=== PATIENT | female | born 2000 ===

== ENCOUNTER 2024-03-22 05:59 | Inpatient (IN) | payer OTHER ==
[~2024-03-22] VITALS: Ht 165.1 cm; Wt 84.8 kg
[2024-03-22 05:37] VITALS: BP 117/77
[2024-03-22] MEDS ORDERED: AMPICILLIN SODIUM 2,000 MG VIAL IV STA (06:09)
[2024-03-22] MEDS ORDERED: PRENATAL CAPLE1 EAC1 PO (06:11)
[2024-03-22] MEDS ORDERED: OXYTOCIN 20 UNITS/500ML RL PIGGYBAG IV ONE (06:15)
[2024-03-22] MEDS ORDERED: RINGERS SOLUTION,LACTATED 1,000 ML IV SCH (06:15)
[2024-03-22 06:46] LABS: HEMATOCRIT 35.8 % (36.0-45.00); HEMOGLOBIN 12.5 g/dL (12.0-15.00); MEAN CELL VOLUME 89.5 fL (80.00-100.00); MEAN CORPUSCULAR HEMOGLOBIN 31.2 pg (27.00-32.0); MEAN CORPUSCULAR HGB CONC 34.9 g/dl (32.0-36.0); PLATELET COUNT 212 K/uL (150-450)
[2024-03-22 06:57] LABS: URINE APPEARANCE Clear; URINE BILIRRUBIN Negative (NEGATIVE); URINE BLOOD Moderate; URINE COLOR Yellow; URINE GLUCOSE Negative (NEGATIVE); URINE KETONE Negative (NEGATIVE); URINE LEUKOCYTE Moderate; URINE NITRATE Negative; URINE PROTEIN Negative (NEGATIVE)
[2024-03-22 06:58] LABS: URINE BACTERIA 764.8 uL (0.0-1933); URINE EPITHELIAL CELLS 75.3 uL (0.0-38.8); URINE RBC 3.6 uL (0.0-20.8); URINE WBC 127.9 uL (0.0-23.2)
[2024-03-22 07:11] LABS: INR 0.94; PARTIAL THROMBOPLASTIN TIME 25.9 SECONDS (22.0-34.0); PROTHROMBIN TIME 10.3 SECONDS (9.0-11.5)
[2024-03-22 07:43] LABS: ALBUMIN 2.8 gm/dL (3.4-5.0); BILIRUBIN TOTAL 0.34 mg/dL (0.3-1.2); CALCIUM 8.9 mg/dL (8.5-10.1); CREATININE SERUM 0.68 mg/dL (0.55-1.02); GFR 109.22; GLOBULINA 3.3 G/DL (2.4-3.5); TOTAL PROTEIN 6.1 gm/dL (6.4-8.2)
[2024-03-22 07:53] VITALS: BP 132/71
[2024-03-22] MEDS ORDERED: PROMETHAZINE HCL 25 MG/ML AMPUL IV ONE (09:00)
[2024-03-22] MEDS ORDERED: AMPICILLIN SODIUM 1,000 MG VIAL IV SCH (09:00)
[2024-03-22] MEDS ORDERED: MEPERIDINE HCL/PF 50 MG/ML VIAL IV ONE (09:00)
[2024-03-22] MEDS ORDERED: LIDOCAINE HCL 1% 10ML VIAL IJ ONE (13:30)
[2024-03-22] MEDS ORDERED: OxyCODONE HCL/APAP UD (PERCOCET) PO PRN (13:30)
[2024-03-22] MEDS ORDERED: ERYTHROMYCIN BASE OPHT 1GM EACH TUBE OP ONE (13:30)
[2024-03-22] MEDS ORDERED: ACETAMINOPHEN 325 MG TABLET PO PRN (13:30)
[2024-03-22] MEDS ORDERED: OXYTOCIN 20 UNITS/1000ML RL PIGGYBAG IV ONE (13:30)
[2024-03-22] MEDS ORDERED: CHLORHEXIDINE GLUCONATE 120 ML BOTTLE TOP ONE (13:30)
[2024-03-22 15:54] VITALS: BP 138/68
[2024-03-22 16:36] VITALS: BP 123/75
[2024-03-22] MEDS ORDERED: BENZOCAINE/MENTHOL 90 ML BOTTLE TOP SCH (17:00)
[2024-03-22] MEDS ORDERED: HYDROCORTISONE 2.5% 30 GM TUBE RECTAL SCH (17:00)
[2024-03-23 00:56] VITALS: BP 106/64
[2024-03-23 01:44] LABS: HEMATOCRIT 34.6 % (36.0-45.00); MEAN CELL VOLUME 88.5 fL (80.00-100.00); MEAN CORPUSCULAR HEMOGLOBIN 30.6 pg (27.00-32.0); MEAN CORPUSCULAR HGB CONC 34.5 g/dl (32.0-36.0); PLATELET COUNT 224 K/uL (150-450); RED BLOOD COUNT 3.91 M/uL (4.00-6.00); RED CELL DISTRIBUTION WIDTH 13.9 % (11.5-14.5)
[2024-03-23 08:00] VITALS: BP 125/73
[2024-03-23 15:44] VITALS: BP 123/74
[2024-03-24 00:37] VITALS: BP 116/76
[2024-03-24 08:01] VITALS: BP 131/82
== END 2024-03-24 11:22 | disposition home or self-care (01) | DRG 807 ==
LOC: LDR 05:59 → OB/GYN 05:59
PROVIDERS: ADMIT Specialist; ATTEND Specialist
PROC: 10E0XZZ Delivery of Products of Conception, External Approach (ICD-10-PCS; principal; 2024-03-22)
PROC: 0UQG7ZZ Repair Vagina, Via Natural or Artificial Opening (ICD-10-PCS; 2024-03-22)
PROC: 4A1HXCZ Monitoring of Products of Conception, Cardiac Rate, External Approach (ICD-10-PCS; 2024-03-22)
DX: O71.4 Obstetric high vaginal laceration alone (principal); Z37.0 Single live birth; O99.824 Streptococcus B carrier state complicating childbirth; Z3A.38 38 weeks gestation of pregnancy; Z20.822 Contact with and (suspected) exposure to COVID-19